=== PATIENT | female | born 1950 | race Caucasian/White ===

== ENCOUNTER 2016-11-28 09:16 | Emergency (ER) | payer BC ==
[2016-11-28] MEDS ORDERED: METHYLPREDNISOLONE PF 125MG/VIAL IVP ONE (09:21)
[2016-11-28] MEDS ORDERED: IPRATROPIUM/ALBUTEROL (0.5MG/3MG) NEB INH ONE (09:21)
--- NOTE | 2016-11-28 09:25 | Emergency Department Record ---
History of Present Illness - General Chief Complaint: Shortness of breath Stated Complaint: SHORT OF BREATH Time Seen by Provider: 11/28/16 09:20 Source: Patient Mode of Arrival: Wheelchair Limitations: No limitations - History of Present Illness Initial Comments: 66 yo female presents to ED with a CC of difficulty breathing symptoms that began 2-3 days ago. Patient reports that she "cannot catch her breath" associated with cough and congestion symptoms. Patient denies fevers or chills , does report loose stools however. Patient reports recent diagnosis of COPD. Patient also reports history of CAD, denies chest discomfort symptoms. MD Complaint: Shortness of breath Onset/Timin -: Days(s) Severity: Moderate Consistency: Constant Improves With: Oxygen Worsens With: Coughing Known History Of: COPD Context: Recent URI Associated Symptoms: Cough Treatments Prior to Arrival: None - Related Data Home Oxygen Therapy: No Previous Rx's Medication Instructions Recorded Albuterol Sulfate 0.083% [Neb] 3 ml NEB .EVERY 4-6 HOURS PRN #30 11/28/16 ml Azithromycin [Zithromax] 250 mg PO DAILY #6 tab 11/28/16 Prednisone [Prednisone 20Mg] 20 mg PO TID #12 tab 11/28/16 Allergies Allergy/AdvReac Type Severity Reaction Status Date / Time NO KNOWN DRUG ALLERGY Allergy Uncoded 01/30/14 10:02 Review of Systems Constitutional: Denies: Chills, Fever, Malaise, Night sweats Eyes: Denies: Eye discharge, Eye pain ENT: Reports: Congestion. Denies: Ear pain, Epistaxis Respiratory: Reports: Cough, Dyspnea, Wheezes Cardiovascular: Reports: Dyspnea on exertion. Denies: Chest pain Endocrine: Denies: Fatigue, Heat or cold intolerance Gastrointestinal: Denies: Abdominal pain, Nausea, Vomiting Genitourinary: Denies: Dysuria, Frequency, Hematuria, Incontinence Musculoskeletal: Denies: Arthralgia, Back pain, Gout, Joint swelling Skin: Denies: Bruising, Change in color Neurological: Denies: Abnormal gait, Confusion, Headache, Seizure Psychiatric: Denies: Anxiety Hematological/Lymphatic: Denies: Anemia, Blood Clots Physical Exam - General General Appearance: Alert, Oriented x3, Cooperative, Moderate distress Limitations: No limitations - Head Head exam: Atraumatic, Normocephalic, Normal inspection Head exam detail: negative: Abrasion, Contusion, Canseco's sign, General tenderness, Hematoma, Laceration - Eye Eye exam: Normal appearance. negative: Conjunctival injection, Periorbital swelling, Periorbital tenderness, Scleral icterus - ENT Ear exam: negative: Auricular hematoma, Auricular trauma Nasal Exam: negative: Active bleeding, Discharge, Dried blood, Foreign body Mouth exam: negative: Drooling, Laceration, Muffled voice, Tongue elevation - Neck Neck exam: Normal inspection. negative: Meningismus, Tenderness - Respiratory Respiratory exam: Decreased breath sounds, Prolonged expiratory, Respiratory distress, Wheezes - Cardiovascular Cardiovascular Exam: Regular rate, Normal rhythm, Normal heart sounds - GI/Abdominal GI/Abdominal exam: Soft. negative: Rebound, Rigid, Tenderness - Rectal Rectal exam: Deferred - exam: Deferred - Extremities Extremities exam: Normal inspection. negative: Calf tenderness, Pedal edema, Tenderness - Back Back exam: Denies: CVA tenderness (R), CVA tenderness (L) - Neurological Neurological exam: Alert, Normal gait, Oriented X3 - Psychiatric Psychiatric exam: Normal affect, Normal mood - Skin Skin exam: Normal color. negative: Abrasion Type of lesion: negative: abrasion Course - Reevaluation(s) Reevaluation #1: 11/28/16 09:52 EKG: NSR 83 Normal axis, IVCD No acute ST-T wave changes Reevaluation #2: 11/28/16 09:54 Labs reviewed and are grossly unremarkable for an acute process. Reevaluation #3: 11/28/16 10:33 CXR: Calcified granuloma as before, nothing acute. Patient is to receive 2nd albuterol treatment, will attempt ambulating biox trial following treatment. Reevaluation #4: 11/28/16 11:00 Patient has received 2nd albuterol treatment, reports significant improvment in her breathing symptoms. Ambulating biox 91-92%, was not significantly out of breath upon completion of her trial. Patient appears stable for discharge on Prednisone, albuterol, and zithromax for her COPD exacerbation. Medical Decision Making - Lab Data Result diagrams: 11/28/16 09:30 11/28/16 09:30 Disposition Disposition: Discharge Clinical Impression: Obstructive Chronic Bronchitis With Exacerbation Disposition: Home, Self-Care Condition: (2) Stable Instructions: COPD Exacerbation, [employer] Professor (GEN) Additional Instructions: Return to ED if your symptoms worsen or if you have any concerns. Prednisone, zithroma, and albuterol as directed. Follow-up with Dr. Quintanilla in 3-5 days as directed. Prescriptions: Albuterol Sulfate 0.083% [Neb] 3 ml NEB .EVERY 4-6 HOURS PRN #30 ml PRN Reason: Difficulty In Breathing Prednisone [Prednisone 20Mg] 20 mg PO TID #12 tab Azithromycin [Zithromax] 250 mg PO DAILY #6 tab Forms: Patient Portal Access Time of Disposition: 11:04
[2016-11-28 09:39] LABS: BASO % 0.5 % (0-6); GRAN % 59.2 % (47-80); HEMATOCRIT 40.8 % (35.0-47.0); HEMOGLOBIN 13.3 gm/dl (11.6-16.0); LYMPH % 30.7 % (16-45); MEAN CELL VOLUME 96.5 fl (81-97); MEAN CORPUSCULAR HEMOGLOBIN 31.4 pg (27-33); MEAN CORPUSCULAR HGB CONC 32.6 g/dl (32-36); MEAN PLATELET VOLUME 13.3 fl (7.4-10.4); MONO % 8.6 % (0-9); PLATELET COUNT 190 K/uL (130-400); RED BLOOD COUNT 4.23 M/uL (3.80-5.40); RED CELL DISTRIBUTION WIDTH 13.9 % (11.5-14.5); WHITE BLOOD COUNT W/O DIFF 11.5 K/uL (4.2-12.2)
[2016-11-28 09:53] LABS: ALB/GLOB RATIO 1.2 (1.1-1.8); ALKALINE PHOSPHATASE 130 U/L (38-126); ALT/SGPT 44 U/L (9-52); ANION GAP 13.1 (7-16); AST/SGOT 26 U/L (14-36); BILIRUBIN,TOTAL 0.39 mg/dL (0.2-1.3); BLOOD UREA NITROGEN 8 mg/dL (7-17); CARBON DIOXIDE 23.9 mmol/L (22-30); CREATININE 0.5 mg/dL (0.52-1.04); EST GLOMERULAR FILTRATION RATE > 60 ml/min; GLUCOSE,RANDOM 120 mg/dL (70-110); TOTAL PROTEIN 7.3 gm/dL (6.3-8.2)
[2016-11-28] MEDS ORDERED: ALBUTEROL SULFATE (0.083%) 2.5 MG/3 ML NEB INH ONE (10:15)
--- NOTE | 2016-12-03 16:09 | RADIOLOGY REPORT ---
EXAM: CHEST 2 VIEWS HISTORY: SHORTNESS OF BREATH, DIFFICULTY IN BREATHING. TECHNIQUE: PA and lateral views. COMPARISON: Two-view chest, 05/30/16. FINDINGS: Heart size is normal. Torsion of the aorta. Mild relative elevation of the right hemidiaphragm slightly more pronounced than before. Calcified granuloma, right base, as before. No acute infiltrate is seen. No pleural effusion or pneumothorax evident. IMPRESSION: 1. CALCIFIED GRANULOMA, RIGHT BASE, BEFORE. 2. MILD ELEVATION, RIGHT HEMIDIAPHRAGM. 3. MILD TORSION OF THE AORTA. JOB NUMBER: [id number] [facility]
== END 2016-11-28 11:11 | disposition home or self-care (01) ==
LOC: ER 09:16
DX: J44.1 Chronic obstructive pulmonary disease with (acute) exacerbation (principal); I25.2 Old myocardial infarction; F17.210 Nicotine dependence, cigarettes, uncomplicated
CPT/HCPCS: 71020; 80053; 85025; 93005; 93010; 94640; 96374; 99284; J2930; J7613